=== PATIENT | male | born 1975 | race Caucasian/White ===

== ENCOUNTER 2023-06-23 18:03 | Emergency (ER) | payer OTHER ==
[2023-06-23 18:24] VITALS: TEMP 97.1
[2023-06-23 18:45] LABS: Appearance Clear (Clear); Bacteria None Seen /HPF (None Seen); Bilirubin Negative (Negative); Blood Negative (Negative); Epithelial Cells None Seen /HPF (None Seen); Glucose, Urine Negative (Negative); Hyaline Casts NONE SEEN /LPF (0-2); Ketones Negative (Negative); Leukocyte Esterase Negative (Negative); Nitrite Negative (Negative); Ph 6.5 (4.6-8.0); Protein,Urine Dip Negative (Negative); RBC 0-2 /HPF (0-5); Specific Gravity 1.015 (1.005-1.030); WBC 0-2 /HPF (0-5)
--- NOTE | 2023-06-23 18:57 | ERPHSYRPT ---
- History of Present Illness Time Seen by Provider: 06/23/23 18:30 Historian: patient Exam Limitations: no limitations Patient Subjective Stated Complaint: Pt states "I have belly pain and diarrhea and nausea. My stomach is killing me. It hurts in my belly when I pee." Triage Nursing Assessment: Pt presented alert and oriented X 3, skin pwd. Pt ambulates with an upright steady gait, able to speak in clear full sentences. Pt resting on bed holding his upper abdomen. Physician History: 47-year-old male presents to emergency department for evaluation of epigastric pain and diarrhea. Symptoms started yesterday. Patient was advised to come to our ED for the request of his pain specialist. Patient has a pain specialist to manage his chronic low back pain. No trauma no fever. No nausea vomiting or diaphoresis. Symptoms are moderate in intensity. No specific worsening or improving factors. Patient otherwise feels well. He voices no other complaints or concerns at this time. Portions of this note were created with voice recognition technology. There may be grammatical, spelling, punctuation or sound alike errors Timing/Duration: today Activities at Onset: none Quality: aching Abdominal Pain Onset Location: epigastric Pain Radiation: no radiation Severity of Pain-Max: moderate Severity of Pain-Current: mild Modifying Factors: Improves With: nothing Associated Symptoms: denies symptoms Previous symptoms: no prior history Allergies/Adverse Reactions: amoxicillin Allergy (Severe, Verified 06/23/23 18:24) itch nausea vomiting chlorhexidine Allergy (Intermediate, Verified 06/23/23 18:24) Rash cephalexin [From Keflex] Adverse Reaction (Intermediate, Verified 06/23/23 18:24) vomiting and nausea clavulanic acid [From Augmentin] Adverse Reaction (Intermediate, Verified 06/23/23 18:24) vomiting nausea Home Medications: Amlodipine Besylate 5 mg [Norvasc 5 mg] 5 mg PO DAILY 06/23/23 [History] Indomethacin 25 mg PO 06/23/23 [History] Lisinopril/Hydrochlorothiazide [Lisinopril-Hctz 20-25 mg Tab] 1 each PO 06/23/23 [History] Ondansetron [Ondansetron Odt ] 06/23/23 [History] Oxycodone HCl [Oxycodone HCl ER] 10 mg PO 06/23/23 [History] Pregabalin [Lyrica] 75 mg PO 06/23/23 [History] Tizanidine HCl 4 mg [Zanaflex 4 MG] 4 mg PO 06/23/23 [History] Topiramate [Topamax] 50 mg PO 06/23/23 [History] allopurinoL [Allopurinol] 200 mg PO 06/23/23 [History] Hx Tetanus, Diphtheria Vaccination/Date Given: Yes Hx Influenza Vaccination/Date Given: No Hx Pneumococcal Vaccination/Date Given: No Immunizations Up to Date: Yes Travel Risk - International Travel Have you traveled outside of the country in past 3 weeks: No - Emerging Infectious Disease Are you exhibiting symptoms associated with any current EIDs: Yes Symptoms: Abdominal Pain, Diarrhea, Shortness of Breath - Review of Systems Constitutional: No Symptoms, No Fever, No Chills Eyes: No Symptoms Ears, Nose, & Throat: No Symptoms Respiratory: No Symptoms, No Cough, No Dyspnea Cardiac: No Symptoms, No Chest Pain, No Edema, No Syncope Abdominal/Gastrointestinal: No Symptoms, No Abdominal Pain, No Nausea, No Vomiting, No Diarrhea Genitourinary Symptoms: No Symptoms, No Dysuria Musculoskeletal: No Symptoms, No Back Pain, No Neck Pain Skin: No Symptoms, No Rash Neurological: No Symptoms, No Dizziness, No Focal Weakness, No Sensory Changes Psychological: No Symptoms Endocrine: No Symptoms Hematologic/Lymphatic: No Symptoms Immunological/Allergic: No Symptoms All Other Systems: Reviewed and Negative - Past Medical History Pertinent Past Medical History: Yes Neurological History: Migraines Cardiac History: High Cholesterol, Hypertension Musculoskeletal History: Other Other Medical History: gout. chronic back pain - Past Surgical History Past Surgical History: Yes Other Surgical History: back surgeries x 6. clare. left ring finger. right knee scope. heart cath - Social History Smoking Status: Never smoker Exposure to second hand smoke: Yes Drug Use: marijuana - Nursing Vital Signs Nursing Vital Signs: Initial Vital Signs Temperature 97.1 F 06/23/23 18:17 Pulse Rate 96 H 06/23/23 18:17 Respiratory Rate 20 06/23/23 18:17 Blood Pressure 138/103 06/23/23 18:17 O2 Sat by Pulse Oximetry 96 06/23/23 18:17 Pain Scale Pain Intensity 8 - Physical Exam General Appearance: no apparent distress, alert Eye Exam: PERRL/EOMI, eyes nml inspection Ears, Nose, Throat Exam: normal ENT inspection, pharynx normal, moist mucous membranes Neck Exam: normal inspection, non-tender, supple, full range of motion Respiratory Exam: normal breath sounds, lungs clear, airway intact, No respiratory distress Cardiovascular Exam: regular rate/rhythm, normal heart sounds Gastrointestinal/Abdomen Exam: soft, No tenderness, No mass Back Exam: normal inspection, normal range of motion, No CVA tenderness, No vertebral tenderness Extremity Exam: normal inspection, normal range of motion, pelvis stable Neurologic Exam: alert, oriented x 3, cooperative, normal mood/affect, nml cerebellar function, sensation nml, No motor deficits Skin Exam: normal color, warm, dry Lymphatic Exam: No adenopathy SpO2 Interpretation: normal SpO2: 96 O2 Delivery: Room Air - Course Nursing assessment & vital signs reviewed: Yes EKG Interpreted by Me: RATE (82), Sinus Rhythm, NORMAL AXIS, NORMAL INTERVALS - CT Exams Abdomen/Pelvis CT Interpretation: Tele-radiologist Report (No comps. Fatty liver normal appendix. Remaining abdomen pelvis negative) Ordered Tests: Active Orders 24 hr Category Date Time Status IV Insertion STAT Care 06/23/23 18:34 Active ABDOMEN AND PELVIS W/0 CONTRAS [CT] Stat Exams 06/23/23 18:35 Taken CBC W DIFF Stat Lab 06/23/23 18:57 Completed CMP Stat Lab 06/23/23 18:57 Completed LIPASE Stat Lab 06/23/23 18:57 Completed TROPONIN Q4H Lab 06/23/23 18:57 Completed TROPONIN Q4H Lab 06/23/23 21:30 Completed TROPONIN Q4H Lab 06/24/23 02:45 Ordered UA W/RFX UR CULTURE Stat Lab 06/23/23 18:38 Completed Medication Summary Discontinued Medications Generic Name Dose Route Start Last Admin Trade Name Freq PRN Reason Stop Dose Admin Sodium Chloride 1,000 mls @ 999 mls/hr 06/23/23 18:34 06/23/23 21:00 Sodium Chloride 0.9% 1000 Ml IV 06/23/23 19:34 Infused .Q1H1M STA Infusion Sodium Chloride Confirm 06/23/23 18:59 Sodium Chloride 0.9% 1000 Ml Administered 06/23/23 19:00 Dose 1,000 mls @ ud .ROUTE .STK-MED ONE Morphine Sulfate 4 mg 06/23/23 21:40 06/23/23 22:00 Morphine Sulfate 4 Mg/Ml Injection IM 06/23/23 21:41 4 mg STAT ONE Administration Morphine Sulfate Confirm 06/23/23 21:50 Morphine Sulfate 4 Mg/Ml Injection Administered 06/23/23 21:51 Dose 4 mg .ROUTE .[facility]-MED ONE Lab/Rad Data: Laboratory Result Diagrams 06/23/23 18:57 06/23/23 18:57 Laboratory Results 06/23/23 06/23/23 06/23/23 Range/Units 21:30 18:57 18:57 WBC (4.0-10.5) x10^3/uL RBC (4.1-5.6) x10^6/uL Hgb (12.5-18.0) g/dL Hct (42-50) % MCV (78-100) fL MCH (26-32) pg MCHC (32-36) g/dL RDW (11.5-14.0) % Plt Count (150-450) x10^3/uL MPV (7.5-11.0) fL Gran % (36.0-66.0) % Immature Gran % (Auto) (0.00-0.4) % Nucleat RBC Rel Count (0.00-0.1) % Eos # (Auto) (0-0.5) x10^3/uL Immature Gran # (Auto) (0.00-0.03) x10^3u/L Absolute Lymphs (auto) (1.0-4.6) x10^3/uL Absolute Monos (auto) (0.0-1.3) x10^3/uL Absolute Nucleated RBC (0.00-0.01) x10^3u/L Lymphocytes % (24.0-44.0) % Monocytes % (0.0-12.0) % Eosinophils % (0.00-5.0) % Basophils % (0.0-0.4) % Absolute Granulocytes (1.4-6.9) x10^3/uL Basophils # (0-0.4) x10^3/uL Sodium 136 (135-145) mmol/L Potassium 4.2 (3.5-5.1) mmol/L Chloride 102 (98-107) mmol/L Carbon Dioxide 27 (22-30) mmol/L Anion Gap 10.5 (5-15) MEQ/L BUN 12 (9-20) mg/dL Creatinine 0.83 (0.66-1.25) mg/dL Estimated GFR 110.0 ML/MIN Glucose 155 H (74-106) mg/dL Calcium 9.6 (8.4-10.2) mg/dL Total Bilirubin 1.00 (0.2-1.3) mg/dL AST 32 (17-59) U/L ALT 42 (0-50) U/L Alkaline Phosphatase 111 (38-126) U/L Troponin I < 0.012 < 0.012 (0.000-0.033) ng/mL Serum Total Protein 6.9 (6.3-8.2) g/dL Albumin 3.7 (3.5-5.0) g/dL Lipase 39 (23-300) U/L Urine Color (Yellow) Urine Appearance (Clear) Urine pH (4.6-8.0) Ur Specific [place] (1.005-1.030) Urine Protein (Negative) Urine Glucose (UA) (Negative) mg/dL Urine Ketones (Negative) Urine Blood (Negative) Urine Nitrite (Negative) Urine Bilirubin (Negative) Urine Urobilinogen (0.2) mg/dL Ur Leukocyte Esterase (Negative) U Hyaline Cast (Auto) (0-2) /LPF Urine Microscopic RBC (0-5) /HPF Urine Microscopic WBC (0-5) /HPF Ur Epithelial Cells (None Seen) /HPF Urine Bacteria (None Seen) /HPF Urine Culture Reflexed (NO) 06/23/23 06/23/23 Range/Units 18:57 18:38 WBC 12.6 H (4.0-10.5) x10^3/uL RBC 5.13 (4.1-5.6) x10^6/uL Hgb 16.1 (12.5-18.0) g/dL Hct 46.1 (42-50) % MCV 89.9 (78-100) fL MCH 31.4 (26-32) pg MCHC 34.9 (32-36) g/dL RDW 12.9 (11.5-14.0) % Plt Count 308 (150-450) x10^3/uL MPV 9.9 (7.5-11.0) fL Gran % 66.2 H (36.0-66.0) % Immature Gran % (Auto) 0.5 H (0.00-0.4) % Nucleat RBC Rel Count 0.0 (0.00-0.1) % Eos # (Auto) 0.38 (0-0.5) x10^3/uL Immature Gran # (Auto) 0.06 H (0.00-0.03) x10^3u/L Absolute Lymphs (auto) 3.13 (1.0-4.6) x10^3/uL Absolute Monos (auto) 0.64 (0.0-1.3) x10^3/uL Absolute Nucleated RBC 0.00 (0.00-0.01) x10^3u/L Lymphocytes % 24.9 (24.0-44.0) % Monocytes % 5.1 (0.0-12.0) % Eosinophils % 3.0 (0.00-5.0) % Basophils % 0.3 (0.0-0.4) % Absolute Granulocytes 8.31 H (1.4-6.9) x10^3/uL Basophils # 0.04 (0-0.4) x10^3/uL Sodium (135-145) mmol/L Potassium (3.5-5.1) mmol/L Chloride (98-107) mmol/L Carbon Dioxide (22-30) mmol/L Anion Gap (5-15) MEQ/L BUN (9-20) mg/dL Creatinine (0.66-1.25) mg/dL Estimated GFR ML/MIN Glucose (74-106) mg/dL Calcium (8.4-10.2) mg/dL Total Bilirubin (0.2-1.3) mg/dL AST (17-59) U/L ALT (0-50) U/L Alkaline Phosphatase (38-126) U/L Troponin I (0.000-0.033) ng/mL Serum Total Protein (6.3-8.2) g/dL Albumin (3.5-5.0) g/dL Lipase (23-300) U/L Urine Color Yellow (Yellow) Urine Appearance Clear (Clear) Urine pH 6.5 (4.6-8.0) Ur Specific [place] 1.015 (1.005-1.030) Urine Protein Negative (Negative) Urine Glucose (UA) Negative (Negative) mg/dL Urine Ketones Negative (Negative) Urine Blood Negative (Negative) Urine Nitrite Negative (Negative) Urine Bilirubin Negative (Negative) Urine Urobilinogen 1.0 A (0.2) mg/dL Ur Leukocyte Esterase Negative (Negative) U Hyaline Cast (Auto) NONE SEEN (0-2) /LPF Urine Microscopic RBC 0-2 (0-5) /HPF Urine Microscopic WBC 0-2 (0-5) /HPF Ur Epithelial Cells None Seen (None Seen) /HPF Urine Bacteria None Seen (None Seen) /HPF Urine Culture Reflexed NO (NO) - Progress Progress: improved Progress Note: 47-year-old male presents to our ED for evaluation of diarrhea and abdominal cramping. Patient also experiencing some epigastric discomfort. Laboratory workup testing unremarkable. Lipase negative. Troponin negative x 2. EKG sinus rhythm. CT abdomen pelvis negative for acute pathology. Patient reassessed he is comfortable. Patient requested pain medication for his chronic low back pain. Patient ambulated throughout our ED. Vital stable. Patient is ready for discharge. Patient has a follow-up appointment scheduled with his primary care doctor this Thursday. Patient did not produce a stool sample for us today. However he understands the importance of obtaining a sample for analysis. Patient voices no other complaints or concerns at this time. Complexity problem addressed is moderate acute complicated No critical care time Complexity of data reviewed and analyzed is moderate. Test ordered test reviewed results analyzed and correlated clinically with history and physical examination. Risk of complication and or risk of morbidity/mortality patient management is low. Vital stable. Time spent to discharge patient approximately 20 minutes. Plan of care established for shared decision making. No social determinants of he alth present impede follow-up. Portions of this note were created with voice recognition technology. There may be grammatical, spelling, punctuation or sound alike errors 06/23/23 22:32 06/23/23 22:33 Counseled pt/family regarding: lab results, diagnosis, need for follow-up, rad results - Departure Departure Disposition: Home Clinical Impression: Abdominal pain, Diarrhea, Fatty liver Condition: Stable Critical Care Time: No Referrals: Provider,Unknown [Primary Care Provider] - Follow up/PCP as directed Additional Instructions: Discharge/Care Plan AMRIA E MILLER was seen on 06/23/23 in the Emergency Room. The patient was counseled regarding Diagnosis,Lab results, Imaging studies, need for follow up and when to return to the Emergency Room. Prescriptions given: Discharge Note I have spoken with the patient and/or caregivers. I have explained the patient's condition, diagnosis and treatment plan based on the information available to me at this time. I have answered the patient's and/or caregiver's questions and addressed any concerns. The patient and/or caregivers have as good understanding of the patient's diagnosis, condition and treatment plan as can be expected at this point. The vital signs have been stable. The patient's condition is stable and appropriate for discharge from the emergency department. The patient will pursue further outpatient evaluation with the primary care physician or other designated or consulting physician as outlined in the dis charge instructions. The patient and/or caregivers are agreeable to this plan of care and follow-up instructions have been explained in detail. The patient and/or caregivers have received these instruction. The patient/and or caregivers are aware that any significant change in condition or worsening of symptoms should prompt an immediate return to this or the closest emergency department or call 911.
[2023-06-23 18:59] LABS: Absolute Neutrophil Ct (ANC) 8.31 x10^3/uL (1.4-6.9); BASOPHIL % 0.3 % (0.0-0.4); Basophil (Absolute #) 0.04 x10^3/uL (0-0.4); Eosinophil (Absolute #) 0.38 x10^3/uL (0-0.5); Hematocrit 46.1 % (42-50); Hemoglobin 16.1 g/dL (12.5-18.0); IMMATURE GRAN # 0.06 x10^3u/L (0.00-0.03); IMMATURE GRAN % 0.5 % (0.00-0.4); Lymphocyte (Absolute #) 3.13 x10^3/uL (1.0-4.6); Lymphocytes % 24.9 % (24.0-44.0); Mean Cell Volume 89.9 fL (78-100); Mean Corpuscular Hemoglobin 31.4 pg (26-32); Mean Corpuscular Hgb Concent. 34.9 g/dL (32-36); Mean Platelet Volume 9.9 fL (7.5-11.0); Monocyte (Absolute #) 0.64 x10^3/uL (0.0-1.3); Monocytes % 5.1 % (0.0-12.0); Neutrophil % 66.2 % (36.0-66.0); Platelet Count 308 x10^3/uL (150-450); Red Blood Count 5.13 x10^6/uL (4.1-5.6); Red Cell Distribution Width 12.9 % (11.5-14.0); White Blood Count 12.6 x10^3/uL (4.0-10.5)
[2023-06-23] MEDS ORDERED: Sodium Chloride 0.9% 1000 ML 1,000 ML ONE (18:59)
[2023-06-23] MEDS: Sodium Chloride 0.9% 1000 ML 1,000 ML IV STA (19:02)
[2023-06-23 19:05] LABS: ADD URINE CULTURE? NO (NO)
[2023-06-23 20:02] LABS: ALBUMIN 3.7 g/dL (3.5-5.0); ANION GAP 10.5 MEQ/L (5-15); Calcium 9.6 mg/dL (8.4-10.2); Creatinine 1 0.83 mg/dL (0.66-1.25); Potassium 4.2 mmol/L (3.5-5.1); Total Protein 6.9 g/dL (6.3-8.2)
[2023-06-23] MEDS ORDERED: MORPHINE SULFATE 4 MG INJ ONE (21:50)
[2023-06-23] MEDS: MORPHINE SULFATE 4 MG INJ IM ONE (22:00)
[2023-06-23 22:13] VITALS: BP 145/78; PULSE 93; RESP 22
[2023-06-23 22:20] VITALS: O2SAT 96
--- NOTE | 2023-06-24 08:36 | XRAY ---
Indication: Right abdomen pain. Nausea and diarrhea. Multiple contiguous axial images obtained through the abdomen and pelvis without contrast. Comparison: None Lung bases clear. Heart not enlarged. Noncontrasted stomach and bowel loops appear nonobstructed with normal appendix. Minimal sigmoid diverticulosis. 22.7 cm fatty hepatomegaly, 16 cm splenomegaly, and previous cholecystectomy. No free fluid/air. Remaining liver, pancreas, spleen, adrenal glands, kidneys, ureters, bladder, and aorta are unremarkable for noncontrast exam. Osseous structures intact with L3-L5 posterior fusion hardware producing beam artifact. Impression: 1. Sigmoid diverticulosis, fatty hepatomegaly, splenomegaly, and status post L3-L5 fusion surgery. 2. Remaining CT abdomen/pelvis without contrast exam is negative.
== END 2023-06-23 22:21 | disposition home or self-care (01) ==
LOC: ED 18:03
DX: R10.13 Epigastric pain (principal); R19.7 Diarrhea, unspecified; K76.0 Fatty (change of) liver, not elsewhere classified; Z79.899 Other long term (current) drug therapy
CPT/HCPCS: 36000; 36415; 74176; 80053; 81001; 83690; 84484; 85025; 96360; 96374; 99284; J2270

== ENCOUNTER 2024-01-12 14:21 | Emergency (ER) | payer OTHER ==
--- NOTE | 2024-01-12 14:27 | ERPHSYRPT ---
- History of Present Illness Time Seen by Provider: 01/12/24 14:26 Source: patient, EMS, old records Exam Limitations: no limitations Physician History: This is a morbidly obese 48-year-old white male patient who for unknown reason fell and found himself on the ground on 01/10/2024. Patient ordinarily walks with a cane because of chronic low back pain. He was able to make his way from his desk at his home to the bed. He stated he called his mother who told him to stay in bed and to rest and relax. The same evening that he fell he woke up and was nauseated. Patient has a prescription for Zofran. Patient sees a pain specialist for his chronic low back pain and is taking oxycodone 4 times a day. The following morning he called his primary care provider who, per patient, stated that if he needed to go to the emergency department to go ahead and go. Patient did not have transportation. He decided to wait till today to go see his primary care provider. He was seen at their office prior to arrival to this visit. He then was brought to our facility via paramedics. Patient complains of headache with a history of loss of consciousness 2 days ago, abdominal pain, hip pain and lower back pain. Patient has had multiple lumbar spine surgeries in the past. Patient also has a history of hyperlipidemia, hypertension, migraine headaches and gout Occurred: days ago (2) Reason for Fall: unknown Injuries/Pain Location: back, lower Loss of Consciousness: prolonged (minutes) Quality: aching (2 days ago) Severity of Pain-Max: moderate Severity of Pain-Current: moderate Modifying Factors: Improves With: movement Associated Symptoms (Fall): headache, trouble walking (Patient chronically walks with a cane), other (Also complains of abdominal pain, bilateral hip pain right greater than left and lower lumbar spine pain), No chest pain, No shortness of breath Allergies/Adverse Reactions: amoxicillin Allergy (Severe, Verified 01/12/24 14:34) itch nausea vomiting chlorhexidine Allergy (Intermediate, Verified 01/12/24 14:34) Rash cephalexin [From Keflex] Adverse Reaction (Intermediate, Verified 01/12/24 14:34) vomiting and nausea clavulanic acid [From Augmentin] Adverse Reaction (Intermediate, Verified 01/12/24 14:34) vomiting nausea adhesive Adverse Reaction (Verified 01/12/24 14:35) Rash Home Medications: Amlodipine Besylate 5 mg [Norvasc 5 mg] 5 mg PO DAILY 06/23/23 [History] Indomethacin 25 mg PO DAILY 06/23/23 [History] Ondansetron [Ondansetron Odt ] 4 mg PO DAILY PRN 06/23/23 [History] Pregabalin [Lyrica] 75 mg PO DAILY 06/23/23 [History] Tizanidine HCl 4 mg [Zanaflex 4 MG] 4 mg PO DAILY 06/23/23 [History] Topiramate [Topamax] 50 mg PO DAILY 06/23/23 [History] allopurinoL [Allopurinol] 200 mg PO DAILY 06/23/23 [History] Lisinopril 20 mg [Zestril 20 MG] 1 tab PO DAILY 01/12/24 [History] Oxycodone / APAP 10/325 mg [Oxycodone-Acetaminophen 10-325] 1 tab PO Q6HPRN PRN 01/12/24 [History] Sucralfate 1 gm [Carafate 1 GM] 1 g PO DAILY 01/12/24 [History] Temazepam 15 mg [Restoril 15 MG] 1 tab PO HS PRN 01/12/24 [History] Venlafaxine Besylate [Venlafaxine Besylate ER] 1 tab PO DAILY 01/12/24 [History] buPROPion HCL [Bupropion Xl] 300 mg PO DAILY 01/12/24 [History] hydroCHLOROthiazide [Hydrochlorothiazide] 1 tab PO DAILY 01/12/24 [History] Hx Tetanus, Diphtheria Vaccination/Date Given: Yes Hx Influenza Vaccination/Date Given: No Hx Pneumococcal Vaccination/Date Given: No Travel Risk - International Travel Have you traveled outside of the country in past 3 weeks: No - Emerging Infectious Disease Are you exhibiting symptoms associated with any current EIDs: Yes Symptoms: Abdominal Pain, Diarrhea, Shortness of Breath - Review of Systems Constitutional: No Symptoms Eyes: No Symptoms Ears, Nose, & Throat: No Symptoms Respiratory: No Symptoms Cardiac: No Symptoms Abdominal/Gastrointestinal: Abdominal Pain, Hematemesis (Single episode 2 days ago) Genitourinary Symptoms: No Symptoms Musculoskeletal: Back Pain, Fall, Other (Right side hip pain) Skin: No Symptoms Neurological: Headache Psychological: No Symptoms Endocrine: No Symptoms Hematologic/Lymphatic: No Symptoms Immunological/Allergic: No Symptoms All Other Systems: Reviewed and Negative - Past Medical History Pertinent Past Medical History: Yes Neurological History: Migraines Cardiac History: High Cholesterol, Hypertension Musculoskeletal History: Other Other Medical History: gout. chronic back pain - Past Surgical History Past Surgical History: Yes Other Surgical History: back surgeries x 6. clare. left ring finger. right knee scope. heart cath - Social History Smoking Status: Never smoker Exposure to second hand smoke: Yes Drug Use: marijuana - Social Determinants of Health Will the patient participate in the screening: Yes Do you worry about a steady place to live?: No In the past 12 months,have you had to go without utilities?: No Transportation Issues: No Has anyone in your support network made you feel unsafe?: No Have you or anyone in your house had to go without enough: No - Nursing Vital Signs Nursing Vital Signs: Initial Vital Signs Temperature 97.4 F 01/12/24 14:23 Pulse Rate 70 01/12/24 14:23 Respiratory Rate 20 01/12/24 14:23 Blood Pressure 124/82 01/12/24 14:23 O2 Sat by Pulse Oximetry 95 01/12/24 14:23 Pain Scale Pain Intensity 7 - Karen Coma Score Best Eye Response (Canon): (4) open spontaneously Best Verbal Response (Karen): (5) oriented Best Motor Response (Karen): (6) obeys commands Karen Total: 15 - Physical Exam General Appearance: no apparent distress, alert, anxiety, obese Head Injury: no evidence of injury Eye Exam: PERRL/EOMI, eyes nml inspection ENT Exam: airway nml, nml ext.inspection Neck Exam: supple, trachea midline, full range of motion, normal alignment, normal inspection Respiratory/Chest Exam: normal breath sounds, No chest tenderness, No respiratory distress, No ecchymosis, No crepitus Cardiovascular Exam: normal heart sounds, regular rate/rhythm Gastrointestinal Exam: soft, normal bowel sounds, tenderness (Mild diffuse nonfocal to palpation), No rebound Rectal Exam: not done Back Exam: normal inspection, decreased range of motion (Mild with movement), No CVA tenderness, No vertebral tenderness Extremity Exam: normal inspection, normal range of motion Neurologic Exam: alert, oriented x 3, cooperative, rail bonder II-XII nml as tested, sensation nml Skin Exam: normal color, warm, dry SpO2 Interpretation: normal O2 Delivery: Room Air - Course Nursing assessment & vital signs reviewed: Yes Ordered Tests: Active Orders 24 hr Category Date Time Status IV Insertion STAT Care 01/12/24 15:34 Active ABDOMEN AND PELVIS W/0 CONTRAS [CT] Stat Exams 01/12/24 14:50 Completed HEAD WITHOUT CONTRAST [CT] Stat Exams 01/12/24 14:49 Completed RECONSTRUCTION [CT] Stat Exams 01/12/24 14:50 Completed Medication Summary Discontinued Medications Generic Name Dose Route Start Last Admin Trade Name Freq PRN Reason Stop Dose Admin Methylprednisolone Sodium 0 mg 01/12/24 15:32 01/12/24 15:35 Succinate 125 mg/ Sterile IM 01/12/24 15:33 Not Given Water 2 ml STAT ONE Methylprednisolone Sodium 0 mg 01/12/24 15:36 01/12/24 16:17 Succinate 125 mg/ Sterile IV 01/12/24 15:37 125 mg Water 2 ml STAT ONE Administration Diphenhydramine HCl 25 mg 01/12/24 15:32 01/12/24 15:35 Diphenhydramine Hcl 50 Mg/Ml Vial IM 01/12/24 15:33 Not Given STAT ONE Diphenhydramine HCl 25 mg 01/12/24 15:35 01/12/24 16:18 Diphenhydramine Hcl 50 Mg/Ml Vial IV 01/12/24 15:36 25 mg STAT ONE Administration Diphenhydramine HCl Confirm 01/12/24 16:15 Diphenhydramine Hcl 50 Mg/Ml Vial Administered 01/12/24 16:16 Dose 50 mg .ROUTE .STK-MED ONE Methylprednisolone Sodium Succinate Confirm 01/12/24 16:15 Methylprednis Sod Succ 125 Mg/2 Ml Vial Administered 01/12/24 16:16 Dose 125 mg .ROUTE .STK-MED ONE Prochlorperazine Edisylate 5 mg 01/12/24 15:31 01/12/24 15:35 Prochlorperazine Edisylate 10 Mg/2 Ml Vial IM 01/12/24 15:32 Not Given STAT ONE Prochlorperazine Edisylate 5 mg 01/12/24 15:36 01/12/24 16:18 Prochlorperazine Edisylate 10 Mg/2 Ml Vial IV 01/12/24 15:37 5 mg STAT ONE Administration Prochlorperazine Edisylate Confirm 01/12/24 16:15 Prochlorperazine Edisylate 10 Mg/2 Ml Vial Administered 01/12/24 16:16 Dose 10 mg .ROUTE .STK-MED ONE Sterile Water Confirm 01/12/24 16:15 Water For Injection,Sterile 10 Ml Vial Administered 01/12/24 16:16 Dose 10 ml IJ .STK-MED ONE - Progress Progress: improved, pain not gone completely Progress Note: 01/12/24 15:40 My medical decision making and the assignment of low to moderate complexity is based on review of the patient's past medical history, review of the patient's medication list, review patient drug allergy list, history present illness and physical findings on examination. The workup in this patient includes CT scan of the head, CT scan of the abdomen and pelvis, CT scan of the reconstruction of the lumbar spine. All the studies are without contrast. Differential diagnosis includes but is not limited to contusion, fracture/dislocation/subluxation 01/12/24 17:[address] scans all without contrast were interpreted by the radiologist and I reviewed the impression: CT scan reconstruction of lumbar spine without contrast compared to 06/23/2023 study. No new or acute abnormalities. There is L3-L5 fusion. CT scan of the abdomen pelvis without contrast showed show stable diverticulitis with L3 L5 fusion. Osseous structures are intact. There are no new or acute findings. CT scan of the head without contrast is a normal CT scan of the head without contrast 01/12/24 17:27 Patient already has prescriptions for oxycodone, Zanaflex and has additional sedating medication of Restoril. Those medications should be sufficient to help control his pain. Counseled pt/family regarding: diagnosis, need for follow-up, rad results Medical Desision Making - Independent Historian Additional History obtained from: Retail Merchandising Coordinator/EMT - Diagnostic Testing Diagnostic test were ordered, analyzed, and reviewed by me: Yes Radiological Interpretation: Reviewed by me, Teleradiologist Report - Risk of complications Low Risk: Low risk of morbidity from additional dx testing or treatment - Departure Departure Disposition: Home Clinical Impression: Fall with no significant injury Condition: Stable Critical Care Time: No Referrals: KOURTNEY BOONE [Primary Care Provider] - Follow up/PCP as directed Additional Instructions: Drink plenty of clear liquids before advancing your diet. Avoid fatty greasy spicy foods. Use your Zofran for control of nausea. Take your Zanaflex and oxycodone for pain control. Call your prescribing provider and your pain specialist tomorrow, 01/13/2024, to help manage your outpatient pain.
[2024-01-12 14:48] VITALS: TEMP 97.4
[2024-01-12] MEDS: BENADRYL 50 MG/ML IM ONE (15:35)
[2024-01-12] MEDS: Compazine 10 MG/2 ML IM ONE (15:35)
[2024-01-12] MEDS: solu-MEDROL 125 MG, Sterile H2O 10 ml 2 ML IM ONE (15:35)
[2024-01-12] MEDS ORDERED: solu-MEDROL ONE (16:15)
[2024-01-12] MEDS ORDERED: BENADRYL 50 MG/ML ONE (16:15)
[2024-01-12] MEDS ORDERED: Compazine 10 MG/2 ML ONE (16:15)
[2024-01-12] MEDS ORDERED: Sterile H2O 10 ml IJ ONE (16:15)
[2024-01-12] MEDS: solu-MEDROL 125 MG, Sterile H2O 10 ml 2 ML IV ONE (16:17)
[2024-01-12] MEDS: BENADRYL 50 MG/ML IV ONE (16:18)
[2024-01-12] MEDS: Compazine 10 MG/2 ML IV ONE (16:18)
--- NOTE | 2024-01-12 16:41 | XRAY ---
Indication: Status post fall 2 days ago. Multiple contiguous axial images obtained through the head without contrast. Comparison: None Normal appearing brain parenchyma, ventricles, and bony calvarium for patient's age. Impression: Normal CT head without contrast exam.
--- NOTE | 2024-01-12 16:45 | XRAY ---
Indication: Left hip pain and right leg weakness following fall 2 days ago. Multiple contiguous axial images obtained through the abdomen and pelvis without contrast. Comparison: June 23, 2023. Lung bases remain clear. Heart not enlarged. Noncontrasted stomach and bowel loops appear nonobstructed with normal appendix. Again minimal sigmoid diverticulosis, 22.3 cm fatty hepatomegaly, 16.7 cm splenomegaly, and cholecystectomy. No free fluid/air. Remaining liver, pancreas, spleen, adrenal glands, kidneys, ureters, bladder, and aorta are unremarkable for noncontrast exam. Osseous structures intact again with L3-L5 fusion hardware beam artifact. Impression: Stable sigmoid diverticulosis, fatty hepatomegaly, splenomegaly, and L3-L5 fusion. No new/acute findings on this noncontrast exam.
--- NOTE | 2024-01-12 16:47 | XRAY ---
Indication: Left hip pain and right leg weakness following fall 2 days ago. Sagittal, coronal, and axial reformatted images lumbar spine obtained using raw data from same day abdomen and pelvis without contrast. Comparison: June 23, 2023. Lumbar spine remain intact again with L3-L5 fusion hardware beam artifact. No new/acute abnormalities. CT abdomen/pelvis reported separately.
[2024-01-12 17:29] VITALS: RESP 18
[2024-01-12] MEDS ORDERED: Hydromorphone 1 mg/ml Injection ONE (18:16)
[2024-01-12] MEDS: Hydromorphone 1 mg/ml Injection IM ONE (18:17)
[2024-01-12 18:23] VITALS: BP 135/80; PULSE 87; O2SAT 94
== END 2024-01-12 18:28 | disposition home or self-care (01) ==
LOC: ED 14:21
DX: Z04.3 Encounter for examination and observation following other accident (principal); R51.9 Headache, unspecified; R10.9 Unspecified abdominal pain; M25.551 Pain in right hip; M25.552 Pain in left hip; M54.50 Low back pain, unspecified; E78.5 Hyperlipidemia, unspecified; I10 Essential (primary) hypertension; Z79.891 Long term (current) use of opiate analgesic; Z79.899 Other long term (current) drug therapy
CPT/HCPCS: 36000; 70450; 74176; 76376; 96372; 96374; 96375; 99284; J1171; J1200; J2919

== ENCOUNTER 2024-01-17 17:53 | Emergency (ER) | payer OTHER ==
[2024-01-17 18:08] VITALS: TEMP 96.7
--- NOTE | 2024-01-17 18:08 | ERPHSYRPT ---
<ROULA FOUNTAIN. - Last Filed: 01/17/24 21:14> - History of Present Illness Historian: patient Exam Limitations: no limitations Patient Subjective Stated Complaint: Pt c/o of blood in vomit, all over abdominal pain Triage Nursing Assessment: Pt brought to the ER by EMS, vitals wnl, rates abdominal pain as 9/10, pulses normal, skin n/w/d, pt states that he was here a week ago due to a syncopal episode, pt states that today he vomited blood and it was coming out of his nose, also states that he was having pain when he was urinating today, no difficulty breathing, right flank pain, tender to right quadrants Timing/Duration: today Activities at Onset: rest Quality: sharpness, stabbing Abdominal Pain Onset Location: generalized abdomen Pain Radiation: no radiation Severity of Pain-Max: severe Severity of Pain-Current: severe Modifying Factors: Improves With: nothing, movement. Worsens With: eating, palpation, vomiting, position Associated Symptoms: loss of appetite, nausea, vomiting, No chest pain, No fever/chills Previous symptoms: no prior history Hx Tetanus, Diphtheria Vaccination/Date Given: Yes Hx Influenza Vaccination/Date Given: No Hx Pneumococcal Vaccination/Date Given: No <MILES RAY - Last Filed: 01/21/24 22:06> - History of Present Illness Time Seen by Provider: 01/17/24 18:08 Physician History: Patient's had abdominal pain. He says he threw up a large amount of blood this morning. This has been going on for 4 months he says. Pain is in the epigastric area. He has been followed by his primary doctor for this. He is on Prilosec. He got an upper endoscopy about a month ago and he said that there was a big area of infection and there. That was his diagnosis from watching the scope. In reality there was basically at normal endoscopy. The patient seems to think that there is an infection. That was not documented. He was worried about throwing up blood today that is why he came in. He has an appointment with his primary doctor in 1 or 2 days. They told him to come to the ER to get evaluated. (ROULA FOUNTAIN) The patient presents with severe abdominal pain and hematemesis. He is accompanied by his mother, who observed the blood in the vomit. Severe abdominal pain and hematemesis began this morning around 5:30 AM. The pain is described as feeling like being in a 'boxing match' with 'body shots' and is located in the midsection. Vomiting was violent, with a significant amount of blood. Following the vomiting episode, he felt extremely fatigued and experienced epistaxis during the vomiting. He attempted to sleep but had another, less severe vomiting episode. Upon waking to urinate, he felt pressure and pain in the abdomen when attempting to urinate. No fever, but he feels clammy, with a temperature of 98.7F. He has been experiencing gastrointestinal symptoms for the past four months, including difficulty eating, nausea, vomiting, and diarrhea. Zofran has been used for nausea, which usually helps, but recently it has been less effective. This morning, after taking Zofran, he experienced a severe episode of vomiting with blood. There is no history of kidney stones. He experienced epistaxis during the vomiting episode, likely due to the forceful nature of the vomiting. There is no history of nosebleeds prior to this event. (MILES RAY) Allergies/Adverse Reactions: amoxicillin Allergy (Severe, Verified 01/17/24 18:07) itch nausea vomiting chlorhexidine Allergy (Intermediate, Verified 01/17/24 18:07) Rash cephalexin [From Keflex] Adverse Reaction (Intermediate, Verified 01/17/24 18:07) vomiting and nausea clavulanic acid [From Augmentin] Adverse Reaction (Intermediate, Verified 01/17/24 18:07) vomiting nausea adhesive Adverse Reaction (Verified 01/17/24 18:07) Rash Home Medications: Amlodipine Besylate 5 mg [Norvasc 5 mg] 5 mg PO DAILY 06/23/23 [History] Indomethacin 25 mg PO DAILY 06/23/23 [History] Ondansetron [Ondansetron Odt ] 4 mg PO DAILY PRN 06/23/23 [History] Pregabalin [Lyrica] 75 mg PO DAILY 06/23/23 [History] Tizanidine HCl 4 mg [Zanaflex 4 MG] 4 mg PO DAILY 06/23/23 [History] Topiramate [Topamax] 50 mg PO DAILY 06/23/23 [History] allopurinoL [Allopurinol] 200 mg PO DAILY 06/23/23 [History] Lisinopril 20 mg [Zestril 20 MG] 1 tab PO DAILY 01/12/24 [History] Oxycodone / APAP 10/325 mg [Oxycodone-Acetaminophen 10-325] 1 tab PO Q6HPRN PRN 01/12/24 [History] Sucralfate 1 gm [Carafate 1 GM] 1 g PO DAILY 01/12/24 [History] Temazepam 15 mg [Restoril 15 MG] 1 tab PO HS PRN 01/12/24 [History] Venlafaxine Besylate [Venlafaxine Besylate ER] 1 tab PO DAILY 01/12/24 [History] buPROPion HCL [Bupropion Xl] 300 mg PO DAILY 01/12/24 [History] hydroCHLOROthiazide [Hydrochlorothiazide] 1 tab PO DAILY 01/12/24 [History] Travel Risk - International Travel Have you traveled outside of the country in past 3 weeks: No - Emerging Infectious Disease Are you exhibiting symptoms associated with any current EIDs: Yes Symptoms: Abdominal Pain, Vomitting <MILES RAY - Last Filed: 01/21/24 22:06> - Review of Systems Constitutional: Weakness Eyes: No Symptoms Ears, Nose, & Throat: Other (Epistaxis) Respiratory: No Symptoms Cardiac: No Symptoms Genitourinary Symptoms: No Symptoms Musculoskeletal: No Symptoms Skin: No Symptoms Neurological: No Symptoms Psychological: No Symptoms <ROULA FOUNTAIN - Last Filed: 01/17/24 21:14> - Review of Systems All Other Systems: Reviewed and Negative <MILES RAY - Last Filed: 01/21/24 22:06> - Past Medical History Pertinent Past Medical History: Yes Neurological History: Migraines Cardiac History: High Cholesterol, Hypertension Respiratory History: Asthma Endocrine Medical History: Hypothyroidism Musculoskeletal History: Other Psycho-Social History: Depression Other Medical History: gout. chronic back pain - Past Surgical History Past Surgical History: Yes Other Surgical History: back surgeries x 6. clare. left ring finger. right knee scope. heart cath - Social History Smoking Status: Never smoker Exposure to second hand smoke: Yes Drug Use: marijuana - Social Determinants of Health Will the patient participate in the screening: Yes Do you worry about a steady place to live?: No Do you have any problems with any of the following?: No known problems In the past 12 months,have you had to go without utilities?: No Transportation Issues: No Has anyone in your support network made you feel unsafe?: No Have you or anyone in your house had to go without enough: No <MILES RAY - Last Filed: 01/21/24 22:06> - Physical Exam General Appearance: no apparent distress Eye Exam: PERRL/EOMI Ears, Nose, Throat Exam: normal ENT inspection Neck Exam: normal inspection Respiratory Exam: normal breath sounds Cardiovascular Exam: regular rate/rhythm Gastrointestinal/Abdomen Exam: other (Soft with tenderness in the upper abdomen bilaterally.) Rectal Exam: deferred Back Exam: normal inspection Extremity Exam: normal inspection Neurologic Exam: alert, normal mood/affect <ROULA FOUNTAIN - Last Filed: 01/17/24 21:14> - Physical Exam General Appearance: no apparent distress, obese Eye Exam: eyes nml inspection Ears, Nose, Throat Exam: normal ENT inspection Neck Exam: normal inspection, non-tender, full range of motion Respiratory Exam: normal breath sounds, lungs clear, airway intact, No respiratory distress Cardiovascular Exam: regular rate/rhythm, normal heart sounds, No edema Gastrointestinal/Abdomen Exam: soft (protuberant), normal bowel sounds, tenderness (diffuse), guarding, No rebound Back Exam: CVA tenderness (right) Neurologic Exam: alert, oriented x 3, cooperative Skin Exam: normal color, warm, dry SpO2 Interpretation: normal SpO2: 97 O2 Delivery: Room Air <MILES RAY - Last Filed: 01/21/24 22:06> - Nursing Vital Signs Nursing Vital Signs: Initial Vital Signs Temperature 96.7 F 01/17/24 18:00 Pulse Rate 88 01/17/24 18:00 Respiratory Rate 16 01/17/24 18:00 Blood Pressure 129/84 01/17/24 18:00 O2 Sat by Pulse Oximetry 97 01/17/24 18:00 Pain Scale Pain Intensity 10 - Course Nursing assessment & vital signs reviewed: Yes EKG Interpreted by Me: RATE (74), Sinus Rhythm, NORMAL AXIS, NORMAL INTERVALS, NORMAL QRS, NORMAL ST-T <MILES RAY. - Last Filed: 01/21/24 22:06> Ordered Tests: Medication Summary Discontinued Medications Generic Name Dose Route Start Last Admin Trade Name Brian PRN Reason Stop Dose Admin Hydrocodone Bitart/Acetaminophen 2 tab 01/17/24 21:18 01/17/24 21:43 Hydrocodone/Apap 5/325 1 Tab Tablet PO 01/17/24 21:19 2 tab STAT ONE Administration Hydrocodone Bitart/Acetaminophen Confirm 01/17/24 21:42 Hydrocodone/Apap 5/325 1 Tab Tablet Administered 01/17/24 21:43 Dose 2 tab .ROUTE .STK-MED ONE Sodium Chloride 1,000 mls @ 999 mls/hr 01/17/24 18:08 01/17/24 18:52 Sodium Chloride 0.9% 1000 Ml IV 01/17/24 19:08 999 mls/hr .Q1H1M STA Administration Sodium Chloride Confirm 01/17/24 18:49 Sodium Chloride 0.9% 1000 Ml Administered 01/17/24 18:50 Dose 1,000 mls @ ud .ROUTE .STK-MED ONE Morphine Sulfate 2 mg 01/17/24 18:08 01/17/24 18:57 Morphine Sulfate 2 Mg/Ml Inj IV 01/17/24 18:09 2 mg STAT ONE Administration Morphine Sulfate Confirm 01/17/24 18:49 Morphine Sulfate 2 Mg/Ml Inj Administered 01/17/24 18:50 Dose 2 mg .ROUTE .STK-MED ONE Ondansetron HCl 4 mg 01/17/24 18:08 01/17/24 18:53 Ondansetron Hcl 4 Mg/2 Ml Vial IV 01/17/24 18:09 4 mg STAT ONE Administration Ondansetron HCl Confirm 01/17/24 18:49 Ondansetron Hcl 4 Mg/2 Ml Vial Administered 01/17/24 18:50 Dose 4 mg .ROUTE .STK-MED ONE Lab/Rad Data: Laboratory Result Diagrams 01/17/24 18:51 01/17/24 18:51 Laboratory Results 01/17/24 01/17/24 01/17/24 Range/Units 20:37 18:51 18:51 WBC (4.23-9.07) x10^3/uL RBC (4.63-6.08) x10^6/uL Hgb (13.7-17.5) g/dL Hct (40.1-51.0) % MCV (79.0-92.2) fL MCH (25.7-32.2) pg MCHC (32.3-36.5) g/dL RDW (11.6-14.4) % Plt Count (163-337) x10^3/uL MPV (9.4-12.4) fL Gran % (34.0-67.9) % Immature Gran % (Auto) (0.001-0.429) % Nucleat RBC Rel Count (0.00-0.2) % Eos # (Auto) (0.04-0.54) x10^3/uL Immature Gran # (Auto) (0.001-0.031) x10^3u/L Absolute Lymphs (auto) (1.32-3.57) x10^3/uL Absolute Monos (auto) (0.30-0.82) x10^3/uL Absolute Nucleated RBC (0.00-0.012) x10^3u/L Lymphocytes % (21.8-53.1) % Monocytes % (5.3-12.2) % Eosinophils % (0.8-7.0) % Basophils % (0.2-1.2) % Absolute Granulocytes (1.78-5.38) x10^3/uL Basophils # (0.01-0.08) x10^3/uL Sodium 136 (135-145) mmol/L Potassium 3.7 (3.5-5.1) mmol/L Chloride 101 (98-107) mmol/L Carbon Dioxide 29 (22-30) mmol/L Anion Gap 10.3 (5-15) MEQ/L BUN 7 L (9-20) mg/dL Creatinine 0.82 (0.66-1.25) mg/dL Estimated GFR 109.7 ML/MIN Glucose 230 H (74-106) mg/dL Lactic Acid (0.4-2.0) Calcium 9.3 (8.4-10.2) mg/dL Total Bilirubin 0.70 (0.2-1.3) mg/dL AST 26 (17-59) U/L ALT 34 (0-50) U/L Alkaline Phosphatase 88 (38-126) U/L Troponin I < 0.012 (0.000-0.033) ng/mL Serum Total Protein 6.5 (6.3-8.2) g/dL Albumin 3.7 (3.5-5.0) g/dL Lipase 43 (23-300) U/L Urine Color Yellow (Yellow) Urine Appearance Clear (Clear) Urine pH 8.0 (4.6-8.0) Ur Specific [place] 1.015 (1.005-1.030) Urine Protein Negative (Negative) Urine Glucose (UA) 250 A (Negative) mg/dL Urine Ketones Negative (Negative) Urine Blood Negative (Negative) Urine Nitrite Negative (Negative) Urine Bilirubin Negative (Negative) Urine Urobilinogen 1.0 A (0.2) mg/dL Ur Leukocyte Esterase Negative (Negative) U Hyaline Cast (Auto) NONE SEEN (0-2) /LPF Urine Microscopic RBC 0-2 (0-5) /HPF Urine Microscopic WBC 0-2 (0-5) /HPF Ur Epithelial Cells None Seen (None Seen) /HPF Urine Bacteria None Seen (None Seen) /HPF Urine Culture Reflexed NO (NO) 01/17/24 01/17/24 Range/Units 18:51 18:50 WBC 11.6 H (4.23-9.07) x10^3/uL RBC 4.71 (4.63-6.08) x10^6/uL Hgb 14.9 (13.7-17.5) g/dL Hct 42.2 (40.1-51.0) % MCV 89.6 (79.0-92.2) fL MCH 31.6 (25.7-32.2) pg MCHC 35.3 (32.3-36.5) g/dL RDW 12.6 (11.6-14.4) % Plt Count 308 (163-337) x10^3/uL MPV 10.0 (9.4-12.4) fL Gran % 65.0 (34.0-67.9) % Immature Gran % (Auto) 0.3 (0.001-0.429) % Nucleat RBC Rel Count 0.0 (0.00-0.2) % Eos # (Auto) 0.33 (0.04-0.54) x10^3/uL Immature Gran # (Auto) 0.04 H (0.001-0.031) x10^3u/L Absolute Lymphs (auto) 2.86 (1.32-3.57) x10^3/uL Absolute Monos (auto) 0.77 (0.30-0.82) x10^3/uL Absolute Nucleated RBC 0.00 (0.00-0.012) x10^3u/L Lymphocytes % 24.8 (21.8-53.1) % Monocytes % 6.7 (5.3-12.2) % Eosinophils % 2.9 (0.8-7.0) % Basophils % 0.3 (0.2-1.2) % Absolute Granulocytes 7.51 H (1.78-5.38) x10^3/uL Basophils # 0.04 (0.01-0.08) x10^3/uL Sodium (135-145) mmol/L Potassium (3.5-5.1) mmol/L Chloride (98-107) mmol/L Carbon Dioxide (22-30) mmol/L Anion Gap (5-15) MEQ/L BUN (9-20) mg/dL Creatinine (0.66-1.25) mg/dL Estimated GFR ML/MIN Glucose (74-106) mg/dL Lactic Acid 2.5 H (0.4-2.0) Calcium (8.4-10.2) mg/dL Total Bilirubin (0.2-1.3) mg/dL AST (17-59) U/L ALT (0-50) U/L Alkaline Phosphatase (38-126) U/L Troponin I (0.000-0.033) ng/mL Serum Total Protein (6.3-8.2) g/dL Albumin (3.5-5.0) g/dL Lipase (23-300) U/L Urine Color (Yellow) Urine Appearance (Clear) Urine pH (4.6-8.0) Ur Specific [place] (1.005-1.030) Urine Protein (Negative) Urine Glucose (UA) (Negative) mg/dL Urine Ketones (Negative) Urine Blood (Negative) Urine Nitrite (Negative) Urine Bilirubin (Negative) Urine Urobilinogen (0.2) mg/dL Ur Leukocyte Esterase (Negative) U Hyaline Cast (Auto) (0-2) /LPF Urine Microscopic RBC (0-5) /HPF Urine Microscopic WBC (0-5) /HPF Ur Epithelial Cells (None Seen) /HPF Urine Bacteria (None Seen) /HPF Urine Culture Reflexed (NO) - Progress Progress: unchanged, pain not gone completely <ROULA FOUNTAIN - Last Filed: 01/17/24 21:14> - Progress Counseled pt/family regarding: lab results, diagnosis, need for follow-up, rad results <MILES RAY - Last Filed: 01/21/24 22:06> - Progress Progress Note: On the differential is gastritis, GI bleed, reflux, pancreatitis,. The patient's labs all look very good. His BUN was not elevated. I do not think that he had a massive GI bleed with a BUN of 7. His hemoglobin was 15. His vital signs are stable and he was in no distress. He has a follow-up appoi ntment coming tomorrow the next day. He had a recent endoscopy a month ago that was negative. I do not think that he has an acute abdominal condition. These have been going on for at least 4 months. At this time I think the patient stable to go home. I went to give him some [place] and have him follow-up with his primary doctor 01/17/24 21:16 (ROULA FOUNTAIN) Abdominal Pain with Hematemesis Reports severe abdominal pain and hematemesis for four months, with acute exacerbation today. Symptoms include diffuse pain, nausea, vomiting, diarrhea, and significant hematemesis. Differential diagnosis includes peptic ulcer disease, gastritis, esophageal varices, or Gerri-Zacarias tear. Discussed need for abdominal imaging and upper endoscopy, including risks (bleeding, infection, perforation) and benefits (early diagnosis, treatment). Possible surgical intervention depending on findings. - Order abdominal imaging - Order upper endoscopy - Order CBC, LFTs, and coagulation profile - Administer IV fluids as needed - Monitor vital signs closely (MILES RAY) Medical Desision Making - Social Determinants of Health Pt's dx & treatment plan are significantly limited by SDOH: limited education Limited access to: transportation - Risk of complications Minimal Risk: Minimal risk of morbidity <ROULA FOUNTAIN - Last Filed: 01/17/24 21:14> - Departure Departure Disposition: Home Critical Care Time: No <ROULA FOUNTAIN - Last Filed: 01/17/24 21:14> <MILES RAY - Last Filed: 01/21/24 22:06> - Departure Clinical Impression: Abdominal pain, Fall with no significant injury Condition: Stable Referrals: KOURTNEY BOONE [Primary Care Provider] - Follow up/PCP as directed
[2024-01-17] MEDS ORDERED: MORPHINE SULFATE 2 MG INJ ONE (18:49)
[2024-01-17] MEDS ORDERED: Zofran 4 MG/2 ML VIAL ONE (18:49)
[2024-01-17] MEDS ORDERED: Sodium Chloride 0.9% 1000 ML 1,000 ML ONE (18:49)
[2024-01-17] MEDS: Sodium Chloride 0.9% 1000 ML 1,000 ML IV STA (18:52)
[2024-01-17] MEDS: Zofran 4 MG/2 ML VIAL IV ONE (18:53)
[2024-01-17 18:54] LABS: Absolute Neutrophil Ct (ANC) 7.51 x10^3/uL (1.78-5.38); BASOPHIL % 0.3 % (0.2-1.2); Basophil (Absolute #) 0.04 x10^3/uL (0.01-0.08); Eosinophil % 2.9 % (0.8-7.0); Eosinophil (Absolute #) 0.33 x10^3/uL (0.04-0.54); Hematocrit 42.2 % (40.1-51.0); Hemoglobin 14.9 g/dL (13.7-17.5); IMMATURE GRAN # 0.04 x10^3u/L (0.001-0.031); IMMATURE GRAN % 0.3 % (0.001-0.429); Lymphocyte (Absolute #) 2.86 x10^3/uL (1.32-3.57); Lymphocytes % 24.8 % (21.8-53.1); Mean Cell Volume 89.6 fL (79.0-92.2); Mean Corpuscular Hemoglobin 31.6 pg (25.7-32.2); Mean Corpuscular Hgb Concent. 35.3 g/dL (32.3-36.5); Monocyte (Absolute #) 0.77 x10^3/uL (0.30-0.82); Monocytes % 6.7 % (5.3-12.2); Platelet Count 308 x10^3/uL (163-337); Red Blood Count 4.71 x10^6/uL (4.63-6.08); Red Cell Distribution Width 12.6 % (11.6-14.4); White Blood Count 11.6 x10^3/uL (4.23-9.07)
[2024-01-17] MEDS: MORPHINE SULFATE 2 MG INJ IV ONE (18:57)
[2024-01-17 19:09] LABS: ALBUMIN 3.7 g/dL (3.5-5.0); ANION GAP 10.3 MEQ/L (5-15); BILIRUBIN,TOTAL 0.7 mg/dL (0.2-1.3); Calcium 9.3 mg/dL (8.4-10.2); Creatinine 1 0.82 mg/dL (0.66-1.25); EST GLOMERULAR FILTRATION RATE 109.7 ML/MIN; Potassium 3.7 mmol/L (3.5-5.1); Total Protein 6.5 g/dL (6.3-8.2)
--- NOTE | 2024-01-17 20:19 | XRAY ---
CLINICAL HISTORY: abd pain COMPARISON: 01/12/2024 TECHNIQUE: A CT scan of the abdomen and pelvis was performed without IV contrast. Coronal and sagittal reconstructive images were also obtained. One of the following dose reduction techniques was utilized for this exam: Automated exposure control, adjustment of the mA and/or kV according to patient size, and use of iterative reconstruction. FINDINGS: Sections of the lower thorax show a 3 mm subpleural nodule with a pleural tag in the lateral basal segment of the left lower lobe. Abdomen: The liver is 20cm in size. The suggestion of mild fatty infiltration. The intrahepatic biliary radicals and the bile ducts are normal. Postcholecystectomy status. The spleen is16 cm in size. The pancreas and adrenal glands are unremarkable. The kidneys are normal in size and shape. No calculi or hydronephrosis. Uncomplicated colonic diverticulosis noted. An appendix is not well-delineated, no inflammatory changes in the right iliac fossa region. Fat attenuation was seen in the submucosa of the terminal ileum, possibly chronic enteritis. Pelvis: The urinary bladder is unremarkable. The rectosigmoid colon is unremarkable. Prostate appears unremarkable. Degenerative changes in the lumbar spine were noted. Postsurgical changes at L3 and L4 levels. IMPRESSION: 1. Moderate hepatosplenomegaly 2. Uncomplicated colonic diverticulosis 3. No significant interval changes since the prior CT study Electronically Signed by: Katlin Heath MD. (01/17/2024 20:15:34 EST)
[2024-01-17 20:47] LABS: Appearance Clear (Clear); Bacteria None Seen /HPF (None Seen); Bilirubin Negative (Negative); Blood Negative (Negative); Epithelial Cells None Seen /HPF (None Seen); Glucose, Urine 250 mg/dL (Negative); Hyaline Casts NONE SEEN /LPF (0-2); Ketones Negative (Negative); Leukocyte Esterase Negative (Negative); Nitrite Negative (Negative); Protein,Urine Dip Negative (Negative); RBC 0-2 /HPF (0-5); Specific Gravity 1.015 (1.005-1.030); WBC 0-2 /HPF (0-5)
[2024-01-17] MEDS ORDERED: NORCO 5/325 MG ONE (21:42)
[2024-01-17] MEDS: NORCO 5/325 MG PO ONE (21:43)
[2024-01-18 00:06] VITALS: BP 127/81; PULSE 74; RESP 18
[2024-01-21 22:07] VITALS: O2SAT 97
== END 2024-01-18 00:10 | disposition home or self-care (01) ==
LOC: ED 17:53
DX: R10.13 Epigastric pain (principal); Z91.81 History of falling; K92.0 Hematemesis; E78.5 Hyperlipidemia, unspecified; I10 Essential (primary) hypertension; Z79.891 Long term (current) use of opiate analgesic; Z79.899 Other long term (current) drug therapy
CPT/HCPCS: 36000; 36415; 74176; 80053; 81001; 83605; 83690; 84484; 85025; 93005; 96374; 96375; 99284; 99285; J2270; J2405; A9270-GY